=== PATIENT | male | born 1985 | race Caucasian/White ===

== ENCOUNTER 2021-10-11 21:52 | Inpatient (IN) ==
[2021-10-11 22:32] LABS: Hemoglobin 14.6 g/dl (14.0-18.0); Mean Corpuscular Hgb Conc 33.2 g/dL (32.0-36.0); Mean Corpuscular Volume 87.3 fL (80.0-100.0); Mean Platelet Volume 10.2 fL (9.4-12.4); Platelet Count 214 K/uL (130-400); RDW Coefficient of Variation 13.3 % (11.5-14.5); RDW Standard Deviation 42.7 fL (36.4-46.3); Red Blood Count 5.04 M/uL (4.63-6.08)
[2021-10-11 22:47] LABS: Basophils # (auto) 0.02 K/uL (0-0.2); Basophils % (auto) 0.1 %; Immature Granulocytes # (auto) 0.11 K/uL (0.00-0.02); Immature Granulocytes % (auto) 0.5 %; Lymphocytes # (auto) 0.36 K/uL (1.2-3.4); Lymphocytes % (auto) 1.7 %; Monocytes # (auto) 0.75 K/uL (0.24-0.82); Monocytes % (auto) 3.6 %; Neutrophils # (auto) 19.86 K/uL (1.4-6.5); Neutrophils % (auto) 94.1 %
[2021-10-11] MEDS ORDERED: SODIUM CHLORIDE 0.9% 1000ML 1,000 ML IV ONE (22:55)
[2021-10-11 22:56] LABS: Albumin Globulin Ratio 1.6 (0.9-2); Bilirubin,Total 0.9 mg/dl (0.2-1.0); Creatinine Clr Calc Pharmacy 115.7 ml/min; Est GFR (African American) 122.7 ml/min; Est GFR (Non-African American) 105.9 ml/min; Globulin 3.2 gm/dl (2.5-4.0); Potassium 4.3 mmol/L (3.5-5.1); Total Protein 8.2 gm/dl (6.0-8.3)
--- NOTE | 2021-10-11 23:05 | Emergency Department Note ---
Impression & Plan Cellulitis of right hand ED Provider Note CHIEF COMPLAINT: Right hand pain and swelling HISTORY OF PRESENTING ILLNESS: This is a 36-year-old male who presents to the emergency department by private vehicle with complaint of right hand pain and swelling that started this morning around 4 AM. Patient states he woke up and noticed some mild pain and swelling over his third knuckle. He states throughout the day the pain and swelling became progressively worse, to the point that he is having difficulty moving his fingers from the pain and swelling. He went to an urgent care and was prescribed prednisone and Keflex, he had 1 dose of each of these around 5 PM and feels that his symptoms have continued to worsen this evening. He describes the pain as aching and rates the pain 4/10. He has not taken any medication for pain. He denies any known injury to the hand, but does recall about a week ago that he was working on a car and got a small piece of metal stuck under the skin at the base of the finger on his palm. He notes that he treated with topical antibiotic ointment and the metal worked itself out 2 days later, and he did not notice any persistent pain or signs of infection at the site. He denies any previous history of hand infections or injuries. He denies any history of IV drug abuse. He denies any history of diabetes. He is right-hand dominant. He reports that his tetanus is up-to-date. He denies any fevers or chills, numbness, tingling, chest pain, shortness of breath, nausea or vomiting, or feeling ill. REVIEW OF SYSTEMS: A complete 10 point review of systems was reviewed with the patient with pertinent positives and negatives as per history of present illness. All else were negative. PAST MEDICAL HISTORY: ADHD SOCIAL HISTORY: Lives at home with family, he denies tobacco use ALLERGIES: No known allergies PHYSICAL EXAM: CONSTITUTIONAL: Pleasant and cooperative. Nontoxic-appearing and in no acute distress. Well appearing and well nourished. HEENT: Normocephalic, atraumatic. NECK: Supple, full active range of motion without discomfort. RESPIRATORY: Clear to auscultation bilaterally with no wheezing, crackles, rhonchi or stridor. Equal expansion bilaterally. CARDIOVASCULAR: Regular rate and rhythm with no murmurs, rubs or gallops. Normal peripheral perfusion. No edema. GASTROINTESTINAL: Soft, nontender, nondistended. Bowel sounds present in all quadrants. MUSCULOSKELETAL: There is significant swelling overlying the third MCP joint of the right hand on the dorsal aspect, erythematous, warm to the touch, and exquisitely tender to palpation. There is fluctuance with no pointing or drainage. Increased pain with passive extension of the third finger. No significant pain with range of motion of the other fingers, full range of motion of the wrist without discomfort. Brisk capillary refill INTEGUMENTARY: No rash or other significant dermatologic conditions noted. NEUROLOGIC: Alert and oriented X 4 with normal affect. Normal strength and sensation in all 4 extremities. Normal speech. Normal gait observed. ED COURSE AND MEDICAL DECISION MAKING: CC: Patient presenting with complaint of right hand pain and swelling DIFFERENTIAL DIAGNOSIS: Includes, but not limited to cellulitis, abscess, retained foreign body, fracture, osteomyelitis, tenosynovitis, septic joint, among others. INTERPRETATION OF LABS: Leukocytosis with left shift, no anemia, normal platelets, hyperglycemia, no other significant electrolyte abnormalities, normal renal function, normal liver enzymes. ESR and CRP are mildly elevated. IMAGING: A three-view x-ray of the right hand was reviewed by myself noting soft tissue swelling overlying the dorsum of the hand, no fracture, radiopaque foreign body, or osteomyelitis by my interpretation. MEDICATION RECONCILIATION: I attest that I have personally reviewed the patient's current medication list. INITIAL VITAL SIGNS REVIEW: I reviewed the patient's initial vital signs and interpret them as follows: T: Afebrile; BP: Normotensive; HR: Within normal limits; RR: Within normal limits; Pulse Ox: Within normal limits on room air. MDM SUMMARY: Patient was evaluated at bedside, history and physical exam performed. Patient is alert and oriented, in no acute distress, resting calmly in the stretcher. He is afebrile and nontoxic-appearing. Significant swelling of the dorsum of the right hand mostly overlying the third MCP joint with erythema, warmth, and tenderness. Increased pain with passive extension of the third finger. No abrasions or wounds noted to the right hand. Orders were placed for labs including CRP and ESR, x-ray of the right hand, IV fluid bolus for hydration. Patient was offered something for pain, he declines at this time. Patient discussed with Dr. Pina, who also evaluated the patient and agrees with my assessment, plan, and disposition. Labs and imaging reviewed, labs notable for significantly elevated WBC count as well as mildly elevated inflammatory markers. Elevated glucose was also noted, hemoglobin A1c is pending. X-ray of the right hand did not demonstrate any bony abnormality by my interpretation. By the clinical exam, I am concerned for possible septic joint or tenosynovitis involving the patient's dominant hand. I spoke on the phone with Dr. Corcoran, orthopedic surgery, who agreed to come evaluate the patient at bedside. After evaluation, Dr. Corcoran [facility] He requested the patient be tested for COVID and be given 2 g IV Ancef now, these were ordered. Patient reassessed multiple times throughout ED stay, he has remained hemodynamically stable and afebrile, no discernible worsening of the patient's hand infection on multiple reassessment. The patient was updated on all results and plan for surgery and admission, all questions were answered to the best of my ability and he was agreeable to this plan. The patient was stable at the time of admission. The chart was completed utilizing [employer] Speech voice recognition software. Grammatical errors, random word insertions, pronoun errors, and incomplete sentences are an occasional consequence of this system due to software limitations, ambient noise, and hardware issues. Any formal questions or concerns about the content, text, or information contained within the body of this dictation should be directly addressed to the nurse practitioner for clarification. Past Med/Surg History Social History Smoking Status: Never smoker Hx Alcohol Use: No Hx Substance Use: No Preferred Language: Yoruba Communication Ability: Effective [employer]i As[employer]er Required: No Beliefs That Will Affect Care: None Current Living Situation: Spouse and Family Other Information That Helps Us Care for You: No Feels Safe at Home: Yes Safety Concerns: Feels Safe At This Time Assistive Devices: None Allergies Allergies Allergy/AdvReac Type Severity Reaction Status Date / Time pollen extracts Allergy Intermediate Congested Verified 10/12/21 00:34 Home Meds Home Medications Medication Instructions Recorded Confirmed dextroamphetamine-amphetamine 30 See Rx Instructions .Route .COMPLEX 10/12/21 10/12/21 mg tablet fluticasone propionate 50 2 spray intranasal DAILY 10/12/21 10/12/21 mcg/actuation nasal spray,suspension omeprazole 20 mg capsule,delayed 20 mg PO DAILY 08/20/22 08/20/22 release zolpidem 10 mg tablet 10 mg PO HS PRN Sleep 10/12/21 10/12/21 Results & Data (ED) Vital Signs Vital Signs - 24 hr 10/12/21 00:09 10/12/21 01:57 Pulse Rate [Finger] 70 78 Respiratory Rate 16 16 Respiratory Effort / Characteristics Non-Labored Spontaneous Respiratory Depth Normal Blood Pressure [Left Arm] 125/69 119/67 Blood Pressure Mean [Left Arm] 87 84 Pulse Oximetry 100 98 Oxygen Delivery Method Room Air Room Air Laboratory Data Result diagrams: 10/12/21 05:52 10/11/21 22:23 Lab Results 10/11/21 10/11/21 10/11/21 Range/Units 22:23 22:23 22:23 WBC 21.10 H (4.8-10.8) K/ul RBC 5.04 (4.63-6.08) M/uL Hgb 14.6 (14.0-18.0) g/dl Hct 44.0 (40.1-51.0) % MCV 87.3 (80.0-100.0) fL MCH 29.0 (25.0-34.0) pg MCHC 33.2 (32.0-36.0) g/dL RDW Std Deviation 42.7 (36.4-46.3) fL RDW Coeff of Cally 13.3 (11.5-14.5) % Plt Count 214 (130-400) K/uL MPV 10.2 (9.4-12.4) fL Immature Gran % (Auto) 0.5 % Neut % (Auto) 94.1 % Lymph % (Auto) 1.7 % Montgomery % (Auto) 3.6 % Eos % (Auto) 0.0 % Baso % (Auto) 0.1 % Neut # (Auto) 19.86 H (1.4-6.5) K/uL Lymph # (Auto) 0.36 L (1.2-3.4) K/uL Montgomery # (Auto) 0.75 (0.24-0.82) K/uL Eos # (Auto) 0.00 (0-0.50) K/uL Baso # (Auto) 0.02 (0-0.2) K/uL Immature Gran # (Auto) 0.11 H (0.00-0.02) K/uL ESR 17 H (0-15) mm/hr Sodium 136 (136-145) mmol/L Potassium 4.3 (3.5-5.1) mmol/L Chloride 103 (98-107) mmol/L Carbon Dioxide 28 (21-32) mmol/L Anion Gap 5 (3-11) BUN 12 (6-23) mg/dl Creatinine 0.92 (0.6-1.4) mg/dl Est Cr Clr Drug Dosing 115.7 ml/min Est GFR ( Amer) 122.7 ml/min Est GFR (Non-Af Amer) 105.9 ml/min BUN/Creatinine Ratio 13.0 (10-20) Glucose 173 H (70-99(Fasting)) mg/dl Estimat Average Glucose mg/dl Hemoglobin A1c (4.5-5.6) % Calcium 10.0 (8.5-10.1) mg/dl Total Bilirubin 0.9 (0.2-1.0) mg/dl AST 20 (13-39) U/L ALT 31 (7-52) U/L Alkaline Phosphatase 97 (34-104) U/L C-Reactive Protein 2.13 H (0-0.5) mg/dl Total Protein 8.2 (6.0-8.3) gm/dl Albumin 5.0 (3.4-5.0) gm/dl Globulin 3.2 (2.5-4.0) gm/dl Albumin/Globulin Ratio 1.6 (0.9-2) SARS-CoV-2, RNA, NAAT (NEGATIVE) 10/11/21 10/12/21 Range/Units 22:23 01:00 WBC (4.8-10.8) K/ul RBC (4.63-6.08) M/uL Hgb (14.0-18.0) g/dl Hct (40.1-51.0) % MCV (80.0-100.0) fL MCH (25.0-34.0) pg MCHC (32.0-36.0) g/dL RDW Std Deviation (36.4-46.3) fL RDW Coeff of Cally (11.5-14.5) % Plt Count (130-400) K/uL MPV (9.4-12.4) fL Immature Gran % (Auto) % Neut % (Auto) % Lymph % (Auto) % Montgomery % (Auto) % Eos % (Auto) % Baso % (Auto) % Neut # (Auto) (1.4-6.5) K/uL Lymph # (Auto) (1.2-3.4) K/uL Montgomery # (Auto) (0.24-0.82) K/uL Eos # (Auto) (0-0.50) K/uL Baso # (Auto) (0-0.2) K/uL Immature Gran # (Auto) (0.00-0.02) K/uL ESR (0-15) mm/hr Sodium (136-145) mmol/L Potassium (3.5-5.1) mmol/L Chloride (98-107) mmol/L Carbon Dioxide (21-32) mmol/L Anion Gap (3-11) BUN (6-23) mg/dl Creatinine (0.6-1.4) mg/dl Est Cr Clr Drug Dosing ml/min Est GFR ( Amer) ml/min Est GFR (Non-Af Amer) ml/min BUN/Creatinine Ratio (10-20) Glucose (70-99(Fasting)) mg/dl Estimat Average Glucose 120 mg/dl Hemoglobin A1c 5.8 H (4.5-5.6) % Calcium (8.5-10.1) mg/dl Total Bilirubin (0.2-1.0) mg/dl AST (13-39) U/L ALT (7-52) U/L Alkaline Phosphatase (34-104) U/L C-Reactive Protein (0-0.5) mg/dl Total Protein (6.0-8.3) gm/dl Albumin (3.4-5.0) gm/dl Globulin (2.5-4.0) gm/dl Albumin/Globulin Ratio (0.9-2) SARS-CoV-2, RNA, NAAT NEGATIVE (NEGATIVE) Administered Medications Docusate Sodium (Docusate Sodium 100 Mg Cap) 100 mg PO BID NELLY Stop: 11/11/21 08:59 Last Admin: 10/12/21 21:34 Dose: 100 mg Documented By: Admin: 10/12/21 09:24 Dose: 100 mg Documented By: DM Fluticasone Propionate (Fluticasone Propionate Na Spr 16 Gm Btl) 2 sprays NA DAILY NELLY Stop: 11/11/21 08:59 Last Admin: 10/12/21 09:25 Dose: Not Given Documented By: NED Vancomycin HCl 1,250 mg/ (Sodium Chloride) 275 mls @ 200 mls/hr IV Q12H NELLY Stop: 10/19/21 13:59 Last Infusion: 10/12/21 15:20 Dose: 0 mls/hr Documented By: Admin: 10/12/21 13:56 Dose: 200 mls/hr Documented By: ALEM Ketorolac Tromethamine (Ketorolac 30 Mg/Ml Vial) 30 mg IV Q6H NELLY Stop: 10/14/21 04:01 Last Admin: 10/12/21 21:34 Dose: 30 mg Documented By: Admin: 10/12/21 17:13 Dose: 30 mg Documented By: Admin: 10/12/21 10:29 Dose: 30 mg Documented By: ALEM Oxycodone HCl (Oxycodone Hcl Ir 5 Mg Tab (Immediate Release)) 5 - 10 mg PO Q4H PRN PRN Reason: Pain or Pre PT Stop: 10/26/21 04:40 Last Admin: 10/12/21 09:28 Dose: 5 mg Documented By: NED Pantoprazole Sodium (Pantoprazole 40 Mg Tab) 40 mg PO DAILY NELLY Stop: 11/11/21 08:59 Last Admin: 10/12/21 09:25 Dose: 40 mg Documented By: NED Sennosides (Senna 8.6 Mg Tab) 17.2 mg PO HS NELLY Stop: 11/11/21 20:59 Last Admin: 10/12/21 21:34 Dose: 17.2 mg Documented By: CORONA Discontinued Medications Bupivacaine HCl (Bupivacaine 0.5 % 5 Mg/1 Ml Mpf 30ml Vial) Confirm Administered Dose 30 ml .ROUTE .STK-MED ONE Stop: 10/12/21 02:32 Last Admin: 10/12/21 03:10 Dose: 6 ml Documented By: ISACC Sodium Chloride (Nss 1000ml) 1,000 mls @ 999 mls/hr IV .Q1H1M ONE Stop: 10/11/21 23:55 Last Infusion: 10/12/21 00:41 Dose: 0 mls/hr Documented By: Admin: 10/11/21 23:11 Dose: 999 mls/hr Documented By: AMINA Cefazolin Sodium (Ancef 2000mg) 2,000 mg in 15 mls @ 3.75 mls/min IV NOW STA Stop: 10/12/21 01:14 Last Admin: 10/12/21 01:18 Dose: 3.75 mls/min Documented By: AMINA Sodium Chloride (Nss 1000ml) 1,000 mls @ 100 mls/hr IV .Q10H NELLY Stop: 10/13/21 06:00 Last Infusion: 10/12/21 13:37 Dose: 0 mls/hr Documented By: Infusion: 10/12/21 12:42 Dose: 0 mls/hr Documented By: Admin: 10/12/21 05:26 Dose: 100 mls/hr Documented By: SAMANTHA Vancomycin HCl 1,500 mg/ (Sodium Chloride) 530 mls @ 200 mls/hr IV 0530 ONE Stop: 10/12/21 08:08 Last Infusion: 10/12/21 08:20 Dose: 0 mls/hr Documented By: Admin: 10/12/21 05:26 Dose: 200 mls/hr Documented By: SAMANTHA Imaging Data Radiologist's Impression: Hand X-Ray 10/11/21 22:55 XR hand RT min 3V routine CLINICAL HISTORY: swelling/redness over 3rd MCP joint COMPARISON STUDY: None. FINDINGS: Soft tissue swelling within the dorsum of the hand most pronounced at the third MCP joint. No fracture or dislocation within the right hand. No radiopaque foreign bodies. No erosive changes identified. IMPRESSION: 1. No fractures within the right hand. 2. Dorsal soft tissue swelling. ACT 112: Negative or not required by law. Electronically signed by: Bertrand Montero M.D. 10/12/2021 8:16 AM Discharge Plan Visit Data Chief Complaint: Hand Injury/Pain Stated Complaint: R HAND SWOLLEN ED Provider: Korey Pina ED Midlevel Provider: Mckayla Garcia Discharge Problem: Cellulitis of right hand Patient Disposition: Being Evaluated by Surgeon Discharge Instructions Interventions: ED Discharge Assessment Last Done: 10/12/21 01:59
[2021-10-11 23:28] LABS: C Reactive Protein 2.13 mg/dl (0-0.5)
[2021-10-12] MEDS ORDERED: ceFAZolin 2000MG 2,000 MG/15 ML SYR IV STA (01:11)
--- NOTE | 2021-10-12 01:16 | History & Physical Report ---
Date of Service October 12, 2021 Assessment & Plan (1) Infected hand: Plan: Patient has an elevated white blood cell count and positive inflammatory markers. His physical examination is suggestive of infection. There is possibility of other things such as gout being present. There is no open wound or puncture. I think the is formed an abscess and he could have a septic joint involving the third metacarpophalangeal joint. I have recommended operative intervention to drain the and potential infection and obtain cultures and he agrees to proceed. We talked about treatment options risk benefits rehab and recovery. We will give him a dose of IV antibiotics now and proceed to the OR soon as possible. Informed consent obtained. History of Present Illness Chief Complaint: Right hand pain Primary Care Provider: ROBBIE Justin Patient is 36 years old. He was awakened with pain in his right hand yesterday morning. He had a prior injury with a small hanane of metal on the palmar surface of the hand which he says came out. This was about 1 week ago. He denies fever chills or sweats. Has not had any other significant injury. No history of infections or MRSA. There is a family history of diabetes. Over the day the hand has gotten progressively more swollen red and painful. He went to a walk-in clinic and got an oral antibiotic and steroid. He is right-hand dominant. Allergies Allergy/AdvReac Type Severity Reaction Status Date / Time pollen extracts Allergy Intermediate Congested Verified 10/12/21 00:34 Home Medications Medication Instructions Recorded Confirmed Type dextroamphetamine-amphetamine 30 See Rx Instructions .Route .COMPLEX 10/12/21 10/12/21 History mg tablet fluticasone propionate 50 2 spray intranasal DAILY 10/12/21 10/12/21 History mcg/actuation nasal spray,suspension omeprazole 20 mg capsule,delayed 20 mg PO DAILY 10/12/21 10/12/21 History release zolpidem 10 mg tablet 10 mg PO HS PRN Sleep 10/12/21 10/12/21 History Past Med/Surg History Social History Smoking Status: Never smoker Preferred Language: Nauruan Feels Safe at Home: Yes Immunizations: He has seasonal allergies. History of ADHD. He has never had surgery before. No significant medical allergies. Physical Exam Physical Exam: Chest is clear to auscultation bilaterally heart is regular rate and rhythm. Examination of the right hand reveals swelling and redness on the dorsum of the hand centralized over the base of the dorsal third ray at the metacarpophalangeal joint. He can almost fully extend and he can flex about two th[address] way but has significant pain. The palmar surface of the hand is benign the MP joint is not tender the flexor sheath is not tender there is no open wound. There is significant tenderness over the middle finger metacarpophalangeal joint area. There is fluctuance present there. Mostly centralized over the MP joint itself not so much in the webspaces. The erythema extends over the back of the hand and there is some tenderness over the fourth and second metacarpal phalangeal joints but not as much as the third. There is increased pain with passive movement of the metacarpophalangeal joint. Median radial and ulnar motor and sensory functions are intact capillary refills less than 2 seconds radial pulses 1+. Results & Data Results & Data ([facility]) Vital Signs (Past 12 Hours) Vital Signs Temp Pulse Pulse Resp BP BP Pulse Ox 10/12/21 00:09 70 16 125/69 100 10/11/21 21:54 36.3 C L 95 H 18 125/76 98 O2 Del Method 10/12/21 00:09 Room Air 10/11/21 21:54 Room Air Laboratory Results Laboratory Results WBC 21.10 K/ul (4.8-10.8) H 10/11/21: RBC 5.04 M/uL (4.63-6.08) 10/11/21 22: Hgb 14.6 g/dl (14.0-18.0) 10/11/21: Hct 44.0 % (40.1-51.0) 10/11/21: MCV 87.3 fL (80.0-100.0) 10/11/21: MCH 29.0 pg (25.0-34.0) 10/11/21: MCHC 33.2 g/dL (32.0-36.0) 10/11/21: RDW Std Deviation 42.7 fL (36.4-46.3) 10/11/21: RDW Coeff of Cally 13.3 % (11.5-14.5) 10/11/21 Plt Count 214 K/uL (130-400) 10/11/21 22:23 MPV 10.2 fL (9.4-12.4) 10/11/21 22:23 Immature Gran % (Auto) 0.5 % 10/11/21 22:23 Neut % (Auto) 94.1 % 10/11/21 22:23 Lymph % (Auto) 1.7 % 10/11/21 22:23 Braxton % (Auto) 3.6 % 10/11/21 22:23 Eos % (Auto) 0.0 % 10/11/21 22:23 Baso % (Auto) 0.1 % 10/11/21 22:23 Neut # (Auto) 19.86 K/uL (1.4-6.5) H 10/11/21 22:23 Lymph # (Auto) 0.36 K/uL (1.2-3.4) L 10/11/21 22:23 Braxton # (Auto) 0.75 K/uL (0.24-0.82) 10/11/21 22:23 Eos # (Auto) 0.00 K/uL (0-0.50) 10/11/21 22:23 Baso # (Auto) 0.02 K/uL (0-0.2) 10/11/21 22:23 Immature Gran # (Auto) 0.11 K/uL (0.00-0.02) H 10/11/21 22:23 ESR 17 mm/hr (0-15) H 10/11/21 22:23 Sodium 136 mmol/L (136-145) 10/11/21 22:23 Potassium 4.3 mmol/L (3.5-5.1) 10/11/21 22:23 Chloride 103 mmol/L (98-107) 10/11/21 22:23 Carbon Dioxide 28 mmol/L (21-32) 10/11/21 22:23 Anion Gap 5 (3-11) 10/11/21 22:23 BUN 12 mg/dl (6-23) 10/11/21 22:23 Creatinine 0.92 mg/dl (0.6-1.4) 10/11/21 22:23 Est Cr Clr Drug Dosing 115.7 ml/min 10/11/21 22:23 Est GFR ( Amer) 122.7 ml/min 10/11/21 22:23 Est GFR (Non-Af Amer) 105.9 ml/min 10/11/21 22:23 BUN/Creatinine Ratio 13.0 (10-20) 10/11/21 22: Glucose 173 mg/dl (70-99(Fasting)) H 10/11/21 22:23 Calcium 10.0 mg/dl (8.5-10.1) 10/11/21 22:23 Total Bilirubin 0.9 mg/dl (0.2-1.0) 10/11/21 22:23 AST 20 U/L (13-39) 10/11/21 22:23 ALT 31 U/L (7-52) 10/11/21 22:23 Alkaline Phosphatase 97 U/L (34-104) 10/11/21 22:23 C-Reactive Protein 2.13 mg/dl (0-0.5) H 10/11/21 22:23 Total Protein 8.2 gm/dl (6.0-8.3) 10/11/21 22: Albumin 5.0 gm/dl (3.4-5.0) 10/11/21 22: Globulin 3.2 gm/dl (2.5-4.0) 10/11/21 22:23 Albumin/Globulin Ratio 1.6 (0.9-2) 10/11/21 22: Code Status & VTE Plan VTE Prophylaxis Plan VTE Prophylaxis will be ordered: No Reason for no VTE drug order: Treatment not indicated
--- NOTE | 2021-10-12 02:17 | Anesthesiology Consultation ---
Date of Service October 12, 2021 Assessment & Plan Chart Review Chart Review: Acceptable Risk for Surgery and Patient NOT seen in Pre Admission Testing Consults Requested none ASA [id number] Proposed Anesthesia Anesthesia Type: General Risk / Benefits Reviewed With: PT / POA / Parent / Guardian, Accepts Plan and Informed Consent Obtained History Surgery Operation Date: 10/12/21 01:40 Proposed Procedures p Incision and Drainage Extremity - Aiden Corcoran MD Height/Weight Height: 5 ft 11 in Weight: 74.4 kg Allergies Allergy/AdvReac Type Severity Reaction Status Date / Time pollen extracts Allergy Intermediate Congested Verified 10/12/21 00:34 Medications Home Medications Medication Instructions Recorded Confirmed Last Taken dextroamphetamine-amphetamine 30 See Rx Instructions .Route .COMPLEX 10/12/21 10/12/21 Unknown mg tablet fluticasone propionate 50 2 spray intranasal DAILY 10/12/21 10/12/21 Unknown mcg/actuation nasal spray,suspension omeprazole 20 mg capsule,delayed 20 mg PO DAILY 10/12/21 10/12/21 Unknown release zolpidem 10 mg tablet 10 mg PO HS PRN Sleep 10/12/21 10/12/21 Unknown Exercise / Class Metabolic Activity II 4-5 Yardwork/Stairs/Walk up hill Past Anesthesia History No Hx of Anesthesia Complications and No Family Hx of Anesthesia Complications History of PONV No Hx of PONV and No Hx of Motion Sickness Social History Smoking Status: Never smoker Physical Exam Vital Signs Last Vital Signs Temp 36.3 C L 10/11/21 21:54 Pulse 78 10/12/21 01:57 Resp 16 10/12/21 01:57 BP 119/67 10/12/21 01:57 Pulse Ox 98 10/12/21 01:57 O2 Del Method 10/12/21 01:57 ENMT Mouth: no dentition abnormality Thyromental Distance: > or= 3.5 Finger Breadths Mallampati Class: II Neck normal visual inspection and + facial hair Respiratory normal respiratory effort Auscultation: lungs clear to auscultation bilaterally Cardiovascular Rate/Rhythm: regular rate and regular rhythm Psychiatric Orientation: alert Testing Laboratory Results 10/11/21 22:23 10/11/21 22:23
[2021-10-12] MEDS ORDERED: ePHEDrine sulfate 50 MG/ML AMP IV PRN (02:18)
[2021-10-12] MEDS ORDERED: ATROPINE SULFATE 0.1 MG/ML 10ML SYR IV PRN (02:18)
[2021-10-12] MEDS ORDERED: ONDANSETRON INJ 2 MG/ML 2 ML VIAL IV PRN ×2 (02:18→04:41)
[2021-10-12] MEDS ORDERED: fentaNYL citrate 100 MCG/2 ML VIAL IV PRN (02:18)
[2021-10-12] MEDS ORDERED: fentaNYL citrate 100 MCG/2 ML VIAL ONE (02:28)
[2021-10-12] MEDS ORDERED: BUPIVACAINE 0.5 % 5 MG/1 ML MPF 30ML VIAL ONE (02:31)
[2021-10-12] MEDS ORDERED: HYDROmorphone INJ 2 MG/ML SYR/VIAL ONE (02:54)
[2021-10-12] MEDS ORDERED: LIDOCAINE 2% 20 MG/ML 5 ML SYR IV ONE (03:23)
[2021-10-12] MEDS ORDERED: PROPOFOL IV EMULSION 10 MG/ML 20 ML VIAL IV ONE (03:23)
[2021-10-12] MEDS ORDERED: ONDANSETRON INJ 2 MG/ML 2 ML VIAL ONE (03:23)
[2021-10-12] MEDS ORDERED: KETOROLAC 30 MG/ML VIAL ONE (03:23)
--- NOTE | 2021-10-12 03:35 | Operative Report ---
Post Operative Report Pre & Post Diagnosis Operation Date: 10/12/21 01:40 Pre-Op Diagnosis: POSSIBLE BREAK, RIGHT HAND SWELLING Post-Op Diagnosis: Right hand infection I identified the patient and participated in the time-out.: Yes Procedure Preop diagnosis is right hand infection Postop diagnosis same Operation Date: 10/12/21 01:40 Actual Procedures p Incision and Drainage Right Hand(Right) - Aiden Corcoran MD Surgeon Aiden Corcoran MD Industrial Engineering Director None Estimated Blood Loss 3 Findings Consistent with Post-Op Diagnosis Specimens Cultures x2. 1 superficial and the second the metacarpal phalangeal joint third finger. Drains 1 Talia drain in the metacarpophalangeal joint third finger Anesthesia Type General Regional Complications none Disposition Accompanied Patient To Recovery: No Disposition: Recovery Room Indications Patient's had a 24 hours of progressive right hand pain. Elevated white count and inflammatory markers. Exam consistent with infection with palpable fluid collection. Possible MCP joint septic arthritis. Description of Procedure Informed consent obtained. Patient identified. He identified the operative site as the right hand. I marked with my initials. A preoperative surgical timeout was performed. A preop dose of IV antibiotics was given. He was taken to the operating room positioned supine on the operating room table. Tourniquet applied to the right arm. The limb was prepped and draped in the usual sterile fashion. DVT prophylaxis not necessary. The examination demonstrated fluctuance over the third metacarpal phalangeal joint with swelling and redness on the back of the hand. I exsanguinated the limb beginning at the level of the wrist and proceeding proximally and inflated the tourniquet to 225 mmHg. I then made a 4 cm incision over the metacarpophalangeal joint of the middle finger. Immediately upon going through the skin collection of purulent fluid was noted and a culture was obtained and sent for routine analysis. There was granulation tissue and inflammation present. I irrigated with 500 cc of saline and explored around the area and found some communication going proximally but no purulence was noted there. There was nothing obvious involving the metacarpophalangeal joint. It felt a little bit boggy. Nothing was going into the webspaces at all or down into the finger. Then what had made a decision on the ulnar side of the extensor meng just lateral to the extensor tendon. I opened up the metacarpophalangeal joint for a distance of 1.5 cm. The joint appeared benign. There was no purulence or abnormal collection of fluid or synovitis appreciated. I irrigated out the joint with range of motion and 500 cc of sterile saline. I then placed a Talia drain into the metacarpophalangeal joint dorsal recess and brought it out through the incision which was then closed with interrupted 3-0 nylon sutur es. A bulky soft sterile hand dressing was applied. Prior to closure the tourniquet was let down and meticulous hemostasis was performed. Half percent Marcaine was injected for a field block. Patient awakened from anesthesia without difficulty taken to the recovery room in stable condition. Specimens were as mentioned above for the cultures. Counts were correct blood loss 3 cc. At the conclusion of the operation spoke the patient's and informed her of the findings. Plan is admit to the hospital elevate ice pain control IV antibiotics. Vancomycin until cultures come back. I attest to the content of the Intraoperative Record and any orders documented therein. Any exceptions are noted below. Addendum October 12, 2021 03:30
--- NOTE | 2021-10-12 03:36 | Anesthesiology Progress Note ---
Date of Service October 12, 2021 Anesthesia Post Procedure Vital Signs Vital Signs: Temp Pulse Pulse Resp BP BP Pulse Ox 10/12/21 01:57 78 16 119/67 98 10/12/21 00:09 70 16 125/69 100 10/11/21 21:54 36.3 C L 95 H 18 125/76 98 O2 Del Method 10/12/21 01:57 Room Air 10/12/21 00:09 Room Air 10/11/21 21:54 Room Air Transfer of Care Handoff Completed per policy Notes Mental Status: alert / awake / arousable Patient Amnestic to Procedure: Yes Nausea / Vomiting: adequately controlled Pain: adequately controlled Airway Patency, RR, SpO2: stable & adequate BP & HR: stable & adequate Hydration State: stable & adequate Anesthetic Complications: no major complications apparent
[2021-10-12] MEDS ORDERED: MAGNESIUM HYDROXIDE SUSP 30 ML UDC PO PRN (04:41)
[2021-10-12] MEDS ORDERED: bisacodyL 10 MG SUPP PR PRN (04:41)
[2021-10-12] MEDS ORDERED: VANCOMYCIN CONSULT ACTIVE PRN (04:41)
[2021-10-12] MEDS ORDERED: SODIUM CHLORIDE 0.9% 1000ML 1,000 ML IV SCH (04:41)
[2021-10-12] MEDS ORDERED: traMADol HCL 50 MG TABLET PO PRN (04:41)
[2021-10-12] MEDS ORDERED: diphenhydrAMINE Capsule 25 MG CAP PO PRN (04:41)
[2021-10-12] MEDS ORDERED: HYDROmorphone INJ 0.5 MG/0.5 ML SYR IV PRN (04:41)
[2021-10-12] MEDS ORDERED: NALOXONE HCL 0.4 MG/1 ML VIAL/CARP IV PRN (04:41)
[2021-10-12] MEDS ORDERED: ACETAMINOPHEN 500 MG TAB PO PRN (04:41)
[2021-10-12] MEDS ORDERED: ZOLPIDEM TARTRATE 10 MG TAB PO PRN (04:41)
[2021-10-12] MEDS ORDERED: ALUMINUM/MAGNESIUM SUSP 30 ML UDC PO PRN (04:41)
[2021-10-12] MEDS ORDERED: METOCLOPRAMIDE HCL INJ 5 MG/ML 2 ML VIAL IV PRN (04:41)
[2021-10-12] MEDS ORDERED: VANCOMYCIN HCL 1,500 MG in SODIUM CHLORIDE 0.9% 500 ML IV ONE (05:30)
[2021-10-12 06:41] LABS: Hematocrit (blood only) 39.2 % (40.1-51.0); Hemoglobin 12.9 g/dl (14.0-18.0); Mean Corpuscular Hemoglobin 28.9 pg (25.0-34.0); Mean Corpuscular Hgb Conc 32.9 g/dL (32.0-36.0); Mean Corpuscular Volume 87.7 fL (80.0-100.0); Mean Platelet Volume 10.7 fL (9.4-12.4); Platelet Count 188 K/uL (130-400); RDW Coefficient of Variation 13.5 % (11.5-14.5); RDW Standard Deviation 43.5 fL (36.4-46.3); Red Blood Count 4.47 M/uL (4.63-6.08); White Blood Count 21.69 K/ul (4.8-10.8)
--- NOTE | 2021-10-12 08:17 | XRay Report ---
XR hand RT min 3V routine CLINICAL HISTORY: swelling/redness over 3rd MCP joint COMPARISON STUDY: None. FINDINGS: Soft tissue swelling within the dorsum of the hand most pronounced at the third MCP joint. No fracture or dislocation within the right hand. No radiopaque foreign bodies. No erosive changes id entified. IMPRESSION: 1. No fractures within the right hand. 2. Dorsal soft tissue swelling. ACT 112: Negative or not required by law. Electronically signed by: Bertrand Montero M.D. 10/12/2021 8:16 AM
[2021-10-12 09:19] LABS: Estimated Average Glucose 120 mg/dl; Hemoglobin A1C 5.8 % (4.5-5.6)
[2021-10-12] MEDS: DOCUSATE SODIUM 100 MG CAP PO SCH ×2 (09:24→21:34)
[2021-10-12] MEDS: PANTOprazole 40 MG TAB PO SCH (09:25)
[2021-10-12] MEDS: FLUTICASONE PROPIONATE NA SPR 16 GM BTL SCH (09:25)
[2021-10-12] MEDS: oxyCODONE HCL IR 5 MG TAB (IMMEDIATE RELEASE) PO PRN (09:28)
[2021-10-12] MEDS: KETOROLAC 30 MG/ML VIAL IV SCH ×3 (10:29→21:34)
--- NOTE | 2021-10-12 11:08 | Pharmacy Report ---
Pharmacy PK ABX Note - Date of Service October 12, 2021 - Assessment and Plan Assessment 36 year old M receiving vancomycin for treatment of right hand cellulitis/infection. OR cultures pending Plan Vancomycin * Loading dose: 1500 mg IV x 1 * Maintenance dose: 1250 mg IV every 12 hours * Regimen is predicted to achieve target AUC/FERNANDO of 400-600 mg/L.hr * Trough level ordered for: [10/14/21 Pharmacy will continue to follow and will adjust dose/frequency as necessary. Thank you. Pharmacy has transitioned to AUC monitoring for vancomycin. AUC/FERNANDO is the preferred PK/PD target and is associated with decreased risk of nephrotoxicity compared to traditional trough targets.
--- NOTE | 2021-10-12 12:42 | Progress Notes ---
DATE OF SERVICE: 10/12/2021 The patient is resting comfortably in bed. Hand feels better. He has required some pain medication. He is afebrile. His vital signs are stable. Cultures at this time are no growth to date. Gram st ain shows polys, but no organisms. Median, radial, and ulnar motor and sensory functions are intact. Dressing clean and dry. Results of the surgery are discussed. I think likely a subcutaneous absce ss at the level of the third metacarpophalangeal joint. I do not see a clear cut evidence that the M P joint was infected and my opinion is that it is likely not. We will continue pain control, elevati on and intravenous antibiotics and follow up culture results when they become available. Job ID: [id number]
[2021-10-12] MEDS: VANCOMYCIN HCL 1,250 MG in SODIUM CHLORIDE 0.9% 250 ML IV SCH (13:56)
[2021-10-12] MEDS ORDERED: VANCOMYCIN HCL 1,250 MG in SODIUM CHLORIDE 0.9% 500 ML IV SCH (14:00)
[2021-10-12] MEDS: SENNA 8.6 MG TAB PO SCH (21:34)
[2021-10-13] MEDS: VANCOMYCIN HCL 1,250 MG in SODIUM CHLORIDE 0.9% 250 ML IV SCH (02:23)
[2021-10-13] MEDS: KETOROLAC 30 MG/ML VIAL IV SCH ×4 (03:56→22:00)
[2021-10-13 06:43] LABS: Basophils # (auto) 0.03 K/uL (0-0.2); Basophils % (auto) 0.3 %; Eosinophils # (auto) 0.18 K/uL (0-0.50); Eosinophils % (auto) 1.6 %; Hematocrit (blood only) 34.3 % (40.1-51.0); Hemoglobin 11.2 g/dl (14.0-18.0); Immature Granulocytes # (auto) 0.07 K/uL (0.00-0.02); Immature Granulocytes % (auto) 0.6 %; Lymphocytes # (auto) 2.14 K/uL (1.2-3.4); Lymphocytes % (auto) 19.1 %; Mean Corpuscular Hemoglobin 28.7 pg (25.0-34.0); Mean Corpuscular Hgb Conc 32.7 g/dL (32.0-36.0); Mean Corpuscular Volume 87.9 fL (80.0-100.0); Mean Platelet Volume 10.6 fL (9.4-12.4); Monocytes % (auto) 9.8 %; Neutrophils # (auto) 7.71 K/uL (1.4-6.5); Neutrophils % (auto) 68.6 %; Platelet Count 147 K/uL (130-400); White Blood Count 11.23 K/ul (4.8-10.8)
[2021-10-13] MEDS: PANTOprazole 40 MG TAB PO SCH (08:49)
[2021-10-13] MEDS: DOCUSATE SODIUM 100 MG CAP PO SCH ×2 (08:49→20:31)
[2021-10-13] MEDS: FLUTICASONE PROPIONATE NA SPR 16 GM BTL SCH (08:50)
--- NOTE | 2021-10-13 10:54 | Progress Notes ---
DATE OF SERVICE: 10/13/2021 Resting comfortably. Pain improved. Afebrile. Vitals stable. Cultures are growing out group B bet a strep, both from the superficial as well as the deep joint. Sensitivities are pending. Discussed with pharmacy and we will switch to Penicillin G. Stop vancomycin. Dressing changed. Still with mo derate swelling on the back of the hand. The erythema has largely dissipated. The back of the hand is tender. There is no fluctuance noted. The Talia drain is pulled. The area around the incision is a little bit macerated, but the erythema and tenderness there has improved. MP joint movement is uncomfortable, but improved. A little more sore at the end of the adjacent digits. Distal neurovas cular intact. Plan is to continue IV penicillin. Elevation. Consult ID. Job ID: [id number]
[2021-10-13] MEDS: PENICILLIN G POTASSIUM 4 MU in DEXTROSE 5% 100 ML IV SCH ×3 (12:31→20:30)
[2021-10-13] MEDS: SENNA 8.6 MG TAB PO SCH (20:30)
[2021-10-14] MEDS: PENICILLIN G POTASSIUM 4 MU in DEXTROSE 5% 100 ML IV SCH ×6 (00:13→20:44)
[2021-10-14] MEDS ORDERED: VANCOMYCIN LEVEL ONE (01:30)
[2021-10-14] MEDS: KETOROLAC 30 MG/ML VIAL IV SCH (04:35)
--- NOTE | 2021-10-14 09:12 | Orthopedic Progress Note ---
Date of Service October 14, 2021 Assessment & Plan (1) Infected hand: Plan: POD 2 s/p incision and drainage right hand by Dr Corcoran Patient is doing well and improving with his range of motion. Swelling and pain well controlled. Talia drain pulled 10/14 and dressing changed 10/14. Dressing in tact today with very minimal drainage. Vitals are stable. Labs stable with WBC and Neutro count trending down Preliminary superficial and deep wound cultures growing Group B strep Continue IV Penicillin ID consulted 10/13, pending Continue PT/OT F/u with Dr Corcoran at [facility] 10-14 days from surgical date (2) Status post incision and drainage: Admission and Anticipated Discharge Date Admission Date: October 12, 2021 Subjective Pt seen and examined bedside. POD 2 s/p incision and drainage right hand by Dr Corcoran. Talia drain pulled yesterday and dressing changed yesterday. Cultures growing group b strep in superficial and deep cultures.Vancomycin stopped and patient started on IV Penicillin. ID consult placed yesterday, still pending. Vitals stable. WBC trending down to 11.23 this morning. H/H stable at 11.2/34.3. Neutrophil count trending down to 7.71. Patient reports this morning that he is doing well. He said he did some exercises yesterday that had caused him some pain but now he is able to move his hand much better. He says that his pain is controlled. He has been elevating. He has no other questions or concerns today. Physical Exam Physical Exam: General: Pt laying in hospital bed AA&O, in NAD, calm and cooperative during exam Upper Extremity: Dressing in tact and not saturated. Ambrocio wrap taken down to r eveal dressing. Dressing in tact with no major drainage or surrounding erythema. Pt is able to make a near complete fist. He has good, pain-free ROM of his MCP, DIP and PIPs. NVI with sensation to light touch distally. Good cap refill. Pt noted to have good color and temperature distally with no signs of vascular or lymphatic insufficiency. Results & Data ([facility]) Vital Signs (Past 12 Hours) Vital Signs Temp Pulse Resp BP Pulse Ox O2 Del Method 10/14/21 07:17 36.9 C 64 16 114/68 98 Room Air 10/13/21 21:56 37.1 C 69 18 143/83 H 99 Room Air
[2021-10-14] MEDS: FLUTICASONE PROPIONATE NA SPR 16 GM BTL SCH ×2 (09:41→09:47)
[2021-10-14] MEDS: DOCUSATE SODIUM 100 MG CAP PO SCH ×2 (09:41→20:44)
[2021-10-14] MEDS: PANTOprazole 40 MG TAB PO SCH (09:41)
[2021-10-14] MEDS: oxyCODONE HCL IR 5 MG TAB (IMMEDIATE RELEASE) PO PRN (19:31)
[2021-10-14] MEDS: SENNA 8.6 MG TAB PO SCH (20:44)
[2021-10-15] MEDS: PENICILLIN G POTASSIUM 4 MU in DEXTROSE 5% 100 ML IV SCH ×6 (00:31→20:14)
[2021-10-15] MEDS: oxyCODONE HCL IR 5 MG TAB (IMMEDIATE RELEASE) PO PRN ×2 (00:36→21:18)
[2021-10-15] MEDS: PANTOprazole 40 MG TAB PO SCH (08:18)
[2021-10-15] MEDS: DOCUSATE SODIUM 100 MG CAP PO SCH ×2 (08:18→20:15)
[2021-10-15] MEDS: FLUTICASONE PROPIONATE NA SPR 16 GM BTL SCH (08:18)
[2021-10-15] MEDS: POLYETHYLENE (MIRALAX) 17 GM PACK PO PRN (16:06)
--- NOTE | 2021-10-15 17:43 | Progress Notes ---
DATE OF SERVICE: 10/15/2021. Resting comfortably. Pain improved. Afebrile. Culture sensitivities are noted. Sensitive to PENIC ILLIN. Dressing changed. Skin wrinkles present. Much less swelling. Improved range of motion. Rachelle rovascularly intact. Redressed. Plan is to continue IV antibiotics. We went over some simple hand exercises. He is constipated. We will get some MiraLax. Await ID consultation for advise regarding antibiotic route and duration. Job ID: [id number]
[2021-10-15] MEDS: SENNA 8.6 MG TAB PO SCH (20:14)
[2021-10-16] MEDS: PENICILLIN G POTASSIUM 4 MU in DEXTROSE 5% 100 ML IV SCH ×6 (00:02→20:51)
[2021-10-16] MEDS: DOCUSATE SODIUM 100 MG CAP PO SCH ×2 (07:49→20:53)
[2021-10-16] MEDS: PANTOprazole 40 MG TAB PO SCH (07:49)
[2021-10-16] MEDS: POLYETHYLENE (MIRALAX) 17 GM PACK PO PRN (07:49)
[2021-10-16] MEDS: FLUTICASONE PROPIONATE NA SPR 16 GM BTL SCH (07:56)
--- NOTE | 2021-10-16 11:05 | Orthopedic Progress Note ---
Date of Service October 16, 2021 Assessment & Plan (1) Infected hand: Plan: POD 4 s/p incision and drainage right hand by Dr Corcoran Patient is doing well and improving with his range of motion. Swelling and pain well controlled. Talia drain pulled 10/14 and dressing changed 10/15. Vitals are stable. Preliminary superficial and deep wound cultures growing Group B strep Continue IV Penicillin ID consulted 10/13, pending Continue PT/OT Blood cultures ordered in preparation for PICC. PICC consent signed today. Patient would like to go home, considering signing out AMA, but understands the need and benefits of staying. He plans to stay for now. F/u with Dr Corcoran at [facility] 10-14 days from surgical date (2) Status post incision and drainage: Admission and Anticipated Discharge Date Admission Date: October 12, 2021 Subjective Patient doing well, no complaints of pain in right hand. Awaiting ID consultation. Tolerating regular diet. Continuing to get IV antibiotics. Physical Exam Musculoskeletal: Right hand dressing intact. Rewrapped the ELIU bandages. fingers move well, distal sensation is normal. Distal cap refill brisk. Results & Data ([facility]) Vital Signs (Past 12 Hours) Vital Signs Temp Pulse Resp BP Pulse Ox O2 Del Method 10/16/21 07:21 36.6 C 58 L 18 106/69 97 Room Air
[2021-10-16] MEDS: oxyCODONE HCL IR 5 MG TAB (IMMEDIATE RELEASE) PO PRN (20:53)
[2021-10-16] MEDS: SENNA 8.6 MG TAB PO SCH (20:54)
[2021-10-17] MEDS: PENICILLIN G POTASSIUM 4 MU in DEXTROSE 5% 100 ML IV SCH ×4 (00:03→12:58)
[2021-10-17] MEDS: PANTOprazole 40 MG TAB PO SCH (08:08)
[2021-10-17] MEDS: DOCUSATE SODIUM 100 MG CAP PO SCH (08:08)
[2021-10-17] MEDS: FLUTICASONE PROPIONATE NA SPR 16 GM BTL SCH (08:09)
[2021-10-17] MEDS: POLYETHYLENE (MIRALAX) 17 GM PACK PO PRN (08:19)
--- NOTE | 2021-10-17 14:17 | Progress Notes ---
DATE OF SERVICE: 10/17/2021 No problems are reported. Hand feels better. He has been afebrile. His vital signs are stable. wound is inspected. There is mild swelling, but no drainage. The erythema and tenderness in the b ack of the hand is dissipated. He has full extension and flexion at the MP joint to 90 degrees. Sut ures are intact. Neurovascularly intact. ID consult was put in on Thursday. It is now , and we have no word on its completion. The str ep bacteria is sensitive to Rocephin. We will go ahead and switch him to Rocephin 1 gram IV. We johanne l do this for approximately 2 weeks and reassess. He will get the first dose through his peripheral IV. He will be discharged from the hospital and will follow up in the MTU unit tomorrow for administ ration of a PICC line and his next dose of Rocephin, which will then be continued at home. We discus sed this with the patient and he agrees. He will follow up on Thursday. He is constipated, but has be en getting Colace, Senokot and MiraLax. He will work on range of motion as instructed. Limit Invidio. He is not able to work at this time. Job ID: [id number]
[2021-10-17] MEDS ORDERED: cefTRIAXone SODIUM 1,000 MG in DEXTROSE 5% 50 ML IV SCH (15:00)
--- NOTE | 2021-10-17 16:23 | Discharge Summary ---
Date of Service October 17, 2021 Admission HPI Per Admitting Provider Patient is 36 years old. He was awakened with pain in his right hand yesterday morning. He had a prior injury with a small hanane of metal on the palmar surface of the hand which he says came out. This was about 1 week ago. He denies fever chills or sweats. Has not had any other significant injury. No history of infections or MRSA. There is a family history of diabetes. Over the day the hand has gotten progressively more swollen red and painful. He went to a walk-in clinic and got an oral antibiotic and steroid. He is right-hand dominant. Discharge Data Consultations 10/12/21 01:11 ED Decision to Admit Stat 10/13/21 10:24 Consult Infectious Diseases Routine Procedures Performed Operation Date: 10/12/21 01:40 Actual Procedures p Incision and Drainage Right Hand(Right) - Aiden Corcoran MD Hospital Course (1) Infected hand: Patient presented to [facility] Emergency Room on October 11, 2021 with complaints of increasing pain and swelling right hand after possibly obtaining a cut. He was then admitted to [facility] after being seen by Dr. Corcoran in the ED with elevated WBC count, ESR and CRP. Pre-operative x-rays were obtained right hand and shows some soft tissue swelling, but no evidence of fracture. He underwent an Irrigation and Debridement of his 3rd MCP joint right hand with Dr. Corcoran on 10/12/21. I ntraoperative cultures were obtained and grew out Group B Strep. He was started on IV antibiotics at the time of his admission and Pen G as prescribed. Infectious Disease consult was placed on 10/13/21 and he was never seen by them during his inpatient stay. The patient threatened to leave AMA, but after discussion agreed to stay for IV antibiotics, attempts were made to contact ID by [place] text, phone calls, etc. and no response was given and he was never seen by them in consultation. Sensitivities grew out and he was sensitive to Rocephin. On 10/17/21 he was changed to 1 gm IV rocephin. PiCC line was placed, consent obtained. He was allowed out of bed, ambulation as tolerated during his inpatient stay. VSS remained stable during his inpatient stay. His WBC count trended down nicely postoperatively. Dressing changes were performed to his right hand every other day, with improved redness, warmth, swelling and range of motion to his right hand and fingers. Encouraged ice and elevation right hand to relieve pain/swelling. He was given his regular home medications. He was given a note to be out of work until further notice. He was given Oxycodone, Tramadol, IV Dialudid and Tylenol as needed for pain. Case managment was involved to assist with antibiotic coverage, home health arrangements and care of his PICC line. Patient agreed and understood the plan, discharge instructions were given. He will have regular follow up as scheduled for care of his hand. All questions answered.
--- NOTE | 2021-10-30 13:19 | Coding Query ---
To promote full compliance with coding requirements relating to patient care, provider participation is requested in all cases of lead cook uncertainty. Please assist us with the question(s) below: Coding Question(s): The diagnosis(es) below was documented in the chart, then subsequently fell off all further documentation. Please indicate if it is still a possible diagnosis or ruled out. Physician's Response(s): POSSIBLE SEPTIC JOINT involving the third metacarpophalangeal joint right hand - (documented on ER, and on OP Report, but 10/12 PN says likely not, but 10/14 PN says culture deep joint growing out group B beta strep, and Discharge Summary says, "He underwent an Irrigation and Debridement of his 3rd MCP joint right hand with Dr. Corcoran on 10/12/21. Intraoperative cultures were obtained and grew out Group B Strep". ( X ) Diagnosed and POA ( ) Diagnosed and not POA ( ) Ruled out ( ) Other (please specify) POSSIBLE ABSCESS right hand subcutaneous - (mentioned on ER as differential diagnosis, H&P, 10/12 Progress Note ( X ) Diagnosed and POA ( ) Diagnosed and not POA ( ) Ruled out ( ) Other (please specify) CELLULITIS OF RIGHT HAND - (documented on ER, the rest of the chart says infected right hand) ( X ) Diagnosed and POA ( ) Diagnosed and not POA ( ) Ruled out ( ) Other (please specify) MTDD
--- NOTE | 2021-10-30 13:28 | Coding Query ---
CODING QUERY To promote full compliance with coding requirements relating to patient care, provider participation is requested in all cases of computer language coder uncertainty. Please assist us with the question(s) below: Coding Question(s): Please specify below, regarding the Incision and Drainage of the right hand and 3rd MCP joint. ( ) this was for Diagnostic purpose ( X ) this was for both Diagnostic and Therapeutic purposes ( ) Other purpose: Please Specify Physician's Response(s): Thank you Dalia Grace Principal Diagnosis: "that condition established after study, to be chiefly responsible for occasioning the admission of the patient to the hospital for care." Co-Existing Principal Diagnosis: "when two or more diagnoses equally meet the criteria for principal diagnosis as determined by the circumstances of admission, diagnostic work up, and/or therapy provided, and the Alphabetic Index, Tabular List, or another coding guideline does not provide sequencing direction, any one of the diagnoses may be sequenced first." "When the physician has documented what appears to be a current diagnosis in the body of the record, but has not included the diagnosis in the final diagnostic statement, the physician should be asked whether the diagnosis should be added." (Source [facility]oding [facility] 2 QTR90. p3-4) VIRGIE
== END 2021-10-17 16:58 | disposition home health service (06) | DRG 506 ==
LOC: ED 21:52 → OR 10-12 01:59 → 3W 10-12 01:59 → 3N 10-15 18:45